=== PATIENT | male | born 1980 | race Caucasian/White ===

== ENCOUNTER 2021-04-06 21:11 | Emergency (ER) | payer OTHER ==
[~2021-04-06] VITALS: Ht 188 cm; Wt 109.1 kg
[2021-04-06 22:57] VITALS: TEMP 98.3
[2021-04-07] MEDS ORDERED: DIFLUCAN 100MG100 MG PO (02:59)
[2021-04-07 03:10] VITALS: BP 130/68; PULSE 80
== END 2021-04-07 03:10 | disposition home or self-care (01) ==
LOC: COL.ER 21:11
DX: H60.91 Unspecified otitis externa, right ear (principal); H66.91 Otitis media, unspecified, right ear
CPT/HCPCS: J1885

== ENCOUNTER 2021-05-01 09:11 | Day surgery (SDC) | payer OTHER ==
[~2021-05-01] VITALS: Ht 188 cm; Wt 106.5 kg
[~2021-05-01 09:11] MED LIST: DIFLUCAN 100MG100 MG PO
[2021-05-01 09:54] VITALS: BP 166/119; PULSE 84; TEMP 97.4
[2021-05-01] MEDS ORDERED: PRILOSEC 20MG20 MG PO (09:56)
[2021-05-01] MEDS ORDERED: TYLENOL 500MG500 MG PO (09:56)
--- NOTE | 2021-05-01 10:48 | NUR ---
The patient was taken to the operating room at this time. The patient's chart was sent with him to surgery along with a glasses case. Will continue to monitor the patient when he returns to the unit.
[2021-05-01 13:35] VITALS: BP 154/105; PULSE 73; TEMP 97.3
--- NOTE | 2021-05-01 13:35 | NUR ---
The patient arrived back to [facility] from the recovery room at this time. The patient appears alert and oriented and denies any pain or nausea at this time. The patient's gauze dressing to his head appears clean, dry and intact. The patient agrees to try some applesauce and water at this time. Post operative vital signs were started at this time. Call light is within reach. The patient denies any further needs at this time. Will continue to monitor the patient.
[2021-05-01 13:50] VITALS: BP 141/100; PULSE 71
--- NOTE | 2021-05-01 13:50 | NUR ---
The patient appears to be tolerating the applesauce and water well. The patient denies any further needs at this time. Vital signs appear stable. Will continue to monitor the patient.
[2021-05-01 14:05] VITALS: BP 136/71; PULSE 66
--- NOTE | 2021-05-01 14:05 | NUR ---
The patient ambulated to the bathroom with the stand by assistance of one nurse and appeared to tolerate the activity well. The patient voided without difficulty and voices a desire to be discharged home.
--- NOTE | 2021-05-01 14:10 | NUR ---
Discharge instructions were reviewed with the patient at this time. The patient verbalized understanding and have no questions for the nurse at this time. The patient's IV to his left hand was removed and a pressure dressing was applied to the site. The patient is dressed and ready to be escorted out.
--- NOTE | 2021-05-01 14:18 | NUR ---
The patient was escorted out via wheelchair to wait for the [facility] bus who will be providing the patient transportation home. The patient's belongings and discharge paperwork were sent with him.
[2021-05-01] MEDS ORDERED: ULTRAM 50MG TAB50 MG PO (14:22)
[2021-05-01] MEDS ORDERED: CILOXAN 5 ML5 ML OP (14:24)
[2021-05-01 15:31] VITALS: BP 154/105; PULSE 78
== END 2021-05-01 14:18 | disposition home or self-care (01) ==
LOC: SDCO 09:11
DX: M26.601 Right temporomandibular joint disorder, unspecified (principal); I10 Essential (primary) hypertension; F17.210 Nicotine dependence, cigarettes, uncomplicated; Z20.822 Contact with and (suspected) exposure to COVID-19
CPT/HCPCS: J0171; J0360; J0690; J1100; J1885; J2405; J2704; J3010; J7120

== ENCOUNTER → 2022-02-04 | Outpatient (CLI) | payer OTHER ==
[~2022-02-04] MED LIST changes: +CILOXAN 5 ML5 ML OP; +PRILOSEC 20MG20 MG PO; +TYLENOL 500MG500 MG PO; +ULTRAM 50MG TAB50 MG PO
[2022-02-04 11:32] LABS: ALBUMIN 4.6 gm/dL (3.5-5.0); BILIRUBIN,TOTAL 0.7 mg/dL (0.2-1.2); CALCIUM 9.3 mg/dL (8.4-10.2); CREATININE, serum 0.9 mg/dL (0.72-1.25); POTASSIUM 4.2 mmol/L (3.5-4.5); TOTAL PROTEIN 7.2 gm/dL (6.2-8.1)
== END ==
LOC: COL.LAB 10:47
DX: I10 Essential (primary) hypertension (principal)